=== PATIENT | female | born 1995 | race American Indian/Alaskan Native ===

== ENCOUNTER 2018-03-10 11:29 | Outpatient (CLI) | payer OTHER, MEDICAID ==
[2018-03-10] MEDS ORDERED: LACTATED RINGERS 1,000 ML IV SCH (13:00)
[2018-03-10 14:19] VITALS: BP 106/56
== END 2018-03-10 14:50 | disposition home or self-care (01) ==
LOC: TRG 11:29
PROVIDERS: ATTEND Obstetrics & Gynecology
DX: O47.1 False labor at or after 37 completed weeks of gestation (principal); Z3A.40 40 weeks gestation of pregnancy
CPT/HCPCS: 96360; 96361; J7120

== ENCOUNTER 2021-01-14 03:28 | Emergency (ER) | payer OTHER ==
[2021-01-14] MEDS ORDERED: levETIRAcetam 1000 MG/NS 0.75% 1,000 MG/100 ML BAG IV ONE (04:12)
--- NOTE | 2021-01-14 04:22 | Emergency Department Report ---
ED Seizure HPI - General Chief Complaint: Seizure Stated Complaint: SEIZURE Time Seen by Provider: 01/14/21 04:03 Source: EMS Mode of arrival: Stretcher Limitations: No Limitations, Altered Mental Status - History of Present Illness Initial Comments: Chief complaint: Seizure HPI: This is a 25-year-old female with history of epilepsy on Keppra who prese nts via EMS. Patient had 2 seizures while at local club called the venue. EMS witnessed 1 additional seizure. Patient was given 5 mg of Versed. Blood sugar 86. 100 mL of D10 given. Patient did admit to drinking alcohol. History obtained from sister and mother. MD Complaint: seizure -: Sudden Description of Episode: loss of consciousness, tonic-clonic movement Witnessed:: Yes Trauma: No Seizure History: known seizure disorder Place: other ([employer] [facility] Possible Precipitating Event: other (Alcohol use) Treatments Prior to Arrival: benzodiazepines - Related Data Home Medications Medication Instructions Recorded Confirmed Last Taken Vit-Fe Fumar-FA [ 1 tab PO QDAY 03/11/18 03/11/18 03/09/18 Vitamin] Previous Rx's Medication Instructions Recorded Last Taken Type Ferrous Sulfate [Feosol 325 MG tab] 325 mg PO QDAY #30 tablet 05/19/20 Unknown Rx Allergies Allergy/AdvReac Type Severity Reaction Status Date / Time No Known Allergies Allergy Verified 04/06/20 22:56 ED Review of Systems ROS: Stated complaint: SEIZURE Other details as noted in HPI Comment: All other systems reviewed and negative Constitutional: denies: fever, malaise Respiratory: denies: cough, shortness of breath Gastrointestinal: denies: abdominal pain, nausea, vomiting ED Past Medical Hx - Past Medical History Previous Medical History?: Yes Hx Hypertension: No Hx Congestive Heart Failure: No Hx Diabetes: No Hx Deep Vein Thrombosis: No Hx Renal Disease: No Hx Sickle Cell Disease: No Hx Seizures: Yes Hx Asthma: No Hx COPD: No Hx HIV: No - Social History Smoking Status: Unknown if ever smoked Substance Use Type: Alcohol - Medications Home Medications: Home Medications Medication Instructions Recorded Confirmed Last Taken Type Vit-Fe Fumar-FA [ 1 tab PO QDAY 03/11/18 03/11/18 03/09/18 History Vitamin] Ferrous Sulfate [Feosol 325 MG tab] 325 mg PO QDAY #30 tablet 05/19/20 Unknown Rx ED Physical Exam - General Limitations: No Limitations, Altered Mental Status General appearance: in no apparent distress, lethargic, other (Lethargic but arousable) - Head Head exam: Present: atraumatic, normocephalic - Eye Eye exam: Present: normal appearance - ENT ENT exam: Present: mucous membranes moist - Neck Neck exam: Present: normal inspection, full ROM - Respiratory Respiratory exam: Present: normal lung sounds bilaterally. Absent: respiratory distress, wheezes, rales, rhonchi - Cardiovascular Cardiovascular Exam: Present: regular rate, normal rhythm, normal heart sounds. Absent: systolic murmur, diastolic murmur, rubs, gallop - GI/Abdominal GI/Abdominal exam: Present: soft, normal bowel sounds. Absent: distended, tenderness, guarding, rebound - Extremities Exam Extremities exam: Present: normal inspection - Back Exam Back exam: Present: normal inspection - Neurological Exam Neurological exam: Present: alert, oriented X3 - Psychiatric Psychiatric exam: Present: normal affect, normal mood - Skin Skin exam: Present: warm, dry, intact, normal color. Absent: rash ED Course Vital Signs 01/14/21 03:45 Temperature 97.9 F Pulse Rate 98 H Respiratory 20 Rate Blood Pressure 132/77 O2 Sat by Pulse 96 Oximetry ED Medical Decision Making - Medical Decision Making Breakthrough seizure history of epilepsy. Patient is currently lethargic after receiving Versed and experiencing 3 seizures. Patient will be observed. Discharge from my colleague once awake and appropriate. I suspect seizure threshold lowered by alcohol ingestion. Critical care attestation.: If time is entered above; I have spent that time in minutes in the direct care of this critically ill patient, excluding procedure time. ED Disposition Clinical Impression: Breakthrough seizure, Epilepsy, Alcohol ingestion Disposition: DC-01 TO HOME OR SELFCARE Is pt being admited?: No Does the pt Need Aspirin: No Condition: Stable Instructions: Epilepsy, Bbyi-[id number] Referrals: LIBBY BARRAGAN MD [Referring] - 3-5 Days
[2021-01-14 08:55] VITALS: BP 107/63
== END 2021-01-14 08:52 | disposition home or self-care (01) ==
LOC: ED 03:28
DX: G40.909 Epilepsy, unspecified, not intractable, without status epilepticus (principal); F10.129 Alcohol abuse with intoxication, unspecified; Z79.899 Other long term (current) drug therapy
CPT/HCPCS: 96374; 99283; J1953